=== PATIENT | male | born 1930 | race Two or more races ===

== ENCOUNTER 2017-10-05 16:06 | Emergency (ER) | payer OTHER ==
[~2017-10-05] VITALS: Ht 167.6 cm; Wt 63.5 kg
[~2017-10-05 16:06] MED LIST: AMBIEN5 MG; AMBIEN5 MG PO; AVELOX ABC PAC400 MG; CATAFLAM50 MG PO; CELESTONE0.6 MG/5 M; COZAAR25 MG; DIOVAN; DIOVAN160 M1; GLUCOTROL; GLUCOTROL10 MG; LASIX20 MG PO; LEVAQUIN500 MG PO; MUCINEX22 ML; PLAVIX75 MG; PLAVIX75 MG PO; [UNRECOGNIZED DRUG - OTHER]
[2017-10-05] MEDS ORDERED: GLIPIZIDE10 MG (16:32)
[2017-10-05] MEDS ORDERED: NEURONTIN300 MG (16:32)
[2017-10-05] MEDS ORDERED: LIPITOR40 MG (16:32)
[2017-10-05] MEDS ORDERED: NAPROXEN500 MG (16:32)
[2017-10-05] MEDS ORDERED: ISOSORBIDE DINI30 MG (16:33)
[2017-10-05] MEDS ORDERED: FENOFIBRATE160 MG (16:33)
[2017-10-05] MEDS ORDERED: SYNTHROID75 MCG (16:34)
[2017-10-05] MEDS ORDERED: METOPROLOL SUCC25 MG (16:34)
== END 2017-10-05 23:08 | disposition home or self-care (01) ==
LOC: ER 16:06
DX: R31.9 Hematuria, unspecified (principal); M54.89 Other dorsalgia

== ENCOUNTER 2018-11-23 11:47 | Emergency (ER) | payer OTHER ==
[~2018-11-23] VITALS: Ht 172.7 cm; Wt 63.5 kg
[~2018-11-23 11:47] MED LIST changes: +FENOFIBRATE160 MG; +GLIPIZIDE10 MG; +ISOSORBIDE DINI30 MG; +LIPITOR40 MG; +METOPROLOL SUCC25 MG; +NAPROXEN500 MG; +NEURONTIN300 MG; +SYNTHROID75 MCG
== END 2018-11-23 17:15 | disposition home or self-care (01) ==
LOC: ER 11:47
DX: K29.60 Other gastritis without bleeding (principal)

== ENCOUNTER 2019-02-25 11:58 | Emergency (ER) | payer OTHER ==
[~2019-02-25] VITALS: Ht 172.7 cm; Wt 63.5 kg
== END 2019-02-25 23:52 | disposition home or self-care (01) ==
LOC: ER 11:58
DX: E86.0 Dehydration (principal); R11.2 Nausea with vomiting, unspecified

== ENCOUNTER 2019-06-23 09:59 | Inpatient (IN) | payer OTHER ==
[~2019-06-23] VITALS: Ht 172.7 cm; Wt 63.5 kg
== END 2019-06-28 10:24 | disposition home or self-care (01) | DRG 281 ==
LOC: ER 09:59 → SEC-K 06-24 14:22 → ICU 06-24 14:22 → ICU-2 06-24 14:27 → ICU 06-24 15:23 → MEDJ 06-27 14:51
PROVIDERS: ADMIT Internal Medicine Cardiovascular Disease
PROC: B246ZZZ Ultrasonography of Right and Left Heart (ICD-10-PCS; principal; 2019-06-24)
PROC: 4A12X4Z Monitoring of Cardiac Electrical Activity, External Approach (ICD-10-PCS; 2019-06-27)
DX: I21.4 Non-ST elevation (NSTEMI) myocardial infarction (principal); I47.1 Supraventricular tachycardia; I11.9 Hypertensive heart disease without heart failure

== ENCOUNTER 2021-11-23 14:40 | Emergency (ER) | payer OTHER ==
[~2021-11-23] VITALS: Ht 170.2 cm; Wt 77.1 kg
[2021-11-23] MEDS ORDERED: METFORMIN HCL500 MG (15:08)
[2021-11-23] MEDS ORDERED: LOSARTAN POTASS25 MG PO (15:09)
[2021-11-23] MEDS ORDERED: ATORVASTATIN CA20 MG PO (15:09)
== END 2021-11-24 08:04 | disposition home or self-care (01) ==
LOC: ER 14:40
DX: R06.02 Shortness of breath (principal); I10 Essential (primary) hypertension; N39.0 Urinary tract infection, site not specified; E11.65 Type 2 diabetes mellitus with hyperglycemia; Z79.84 Long term (current) use of oral hypoglycemic drugs; Z20.822 Contact with and (suspected) exposure to COVID-19